=== PATIENT | male | born 1975 | race Hispanic/Latino ===

== ENCOUNTER 2024-07-05 11:28 | Inpatient (IN) | payer SELFPAY ==
[2024-07-05] VITALS (9 sets, daily range): BP systolic 91–118; BP diastolic 56–80; PULSE 89–159; RESP 13–24; TEMP 98.3–98.9; O2SAT 97
[~2024-07-05] VITALS: Ht 175.3 cm; Wt 76.7 kg
--- NOTE | 2024-07-05 11:36 | ERN ---
General Chief Complaint: Multiple Complaints Stated Complaint: MULTIPLE COMPLAINTS Time Seen by MD: 11:31 Source: patient History of Present Illness Initial Comments PATIENT IS A 48-YEAR-OLD MALE COMING IN COMPLAINING OF GENERALIZED BODY WEAKNESS WEIGHT LOSS AND NOCTURIA BEFORE SEVERAL WEEKS. HE STATES THAT HE WAS A DIABETIC BUT HAS NOT FOLLOWED UP WITH HIS PRIMARY CARE PHYSICIAN. Allergies: Coded Allergies: No Known Drug Allergies (Unverified Allergy, Unknown, 07/05/24) Past Medical History Past Medical History: No Pertinent History Past Surgical History: Other Surgical History Other: R LEG ROS Dictation CONSTITUTIONAL: NO CHILLS, NO FEVER, WEAKNESS, NO DIAPHORESIS, NO MALAISE. HEAD/FACE: NO SIGNS OF TRAUMA. EENT: NO EYE PAIN, NO BLURRED VISION, NO TEARING, NO DOUBLE VISION, NO EAR PAIN, NO EAR DISCHARGE, NO NOSE PAIN, NO NASAL CONGESTION, NO THROAT PAIN, NO THROAT SWELLING, NO MOUTH PAIN. RESPIRATORY: NO COUGH, NO ORTHOPNEA, NO SOB, NO STRIDOR, NO WHEEZING. CARDIOVASCULAR: NO CHEST PAIN, NO EDEMA, NO PALPITATIONS, NO SYNCOPE. GASTROINTESTINAL/ABDOMINAL: NO ABDOMINAL PAIN, NO CONSTIPATION, NO DIARRHEA, NO NAUSEA, NO VOMITING. GENITOURINARY: NO ABNORMAL DISCHARGE, NO DYSURIA, NO FREQUENT URINATION, NO HEMATURIA. NO COMPLAINTS OF PAIN IN THE GENITALS. MUSCULOSKELETAL: NO BACK PAIN, NO GOUT, NO JOINT PAIN, NO JOINT SWELLING, NO MUSCLE PAIN, NO MUSCLE STIFFNESS, NO NECK PAIN. INTEGUMENTARY: NO CHANGE IN COLOR, NO CHANGE IN HAIR/NAILS, NO DRYNESS, NO LESION, NO LUMPS, NO RASH. NEUROLOGICAL/PSYCH: NO ANXIETY, NOT DEPRESSED, NO EMOTIONAL PROBLEM, NO HEADACHE, NO NUMBNESS, NO PRE-EXISTING DEFICIT, NO HISTORY OF SEIZURES, NO TREMORS, NO WEAKNESS. HEMATOLOGIC/LYMPHATIC: NOT ANEMIC, NO HISTORY OF BLOOD CLOTS, NO APPARENT BLEEDING, NO BRUISING, GLANDS NOT SWOLLEN. ALL SYSTEMS NEGATIVE, EXCEPT NOTED. Physical Exam Physical Exam Dictation VITAL SIGNS: REVIEWED. GENERAL APPEARANCE: ALERT, ORIENTED X3, NO ACUTE DISTRESS, OBESE. HEAD AND FACE: NON-TRAUMATIC. EYES: PERRL, PINK CONJUNCTIVAS, EYELID NO TRAUMA, ANTERIOR CHAMBER CLEAR. EARS: PINNAS INTACT AND NO SIGNS OF TRAUMA OR ERYTHEMA. EAR CANALS CLEAR AND NO DISCHARGE. TMS NO ERYTHEMA. NOSE: NO DISCHARGE, NO BLEEDING. OROPHARYNX: MOUTH NORMAL, TEETH NO CARIES, TONGUE PINK. PHARYNX CLEAR, NO ERYTHEMA. TONSILS NO EXUDATES, NO ABSCESSES NOTED. MUCOUS MEMBRANE MOIST. NECK: SUPPLE, NON-TENDER, NO THYROMEGALY, NO MASSES, NO JVD, NO BRUITS. BREAST: DEFERRED. CHEST: NO TENDERNESS, NO CREPITUS, NO PARADOXICAL MOVEMENT, NO RETRACTIONS. LUNGS: CLEAR, WELL-VENTILATED, SYMMETRIC, NO RALES, NO WHEEZING, NO RHONCHI, NO STRIDOR, GOOD BREATH SOUNDS BILATERALLY. HEART: REGULAR RATE, REGULAR RHYTHM, NO MURMUR, NO GALLOPS. VASCULAR: NO PERIPHERAL EDEMA. ABDOMEN: SOFT, POSITIVE BOWEL SOUNDS, NONDISTENDED, NO GUARDING, NONTENDER, NO REBOUND, NO MASSES NO HEPATOMEGALY, NO SPLENOMEGALY, NO CHONG'S SIGN, NO HERNIAS. RECTAL: DEFERRED. GENITAL: DEFERRED. NEUROLOGICAL: NORMAL SPEECH, GROSS MOTOR FUNCTION INTACT, GROSS SENSORY FUNCTION INTACT. MUSCULOSKELETAL: NECK NONTENDER, FULL RANGE OF MOTION, BACK NONTENDER, FULL RANGE OF MOTION. EXTREMITIES: NONTENDER, FULL RANGE OF MOTION. SKIN: COLOR PINK, DRY, NO TURGOR, NO RASH, NO LACERATIONS, NO ABRASIONS, NO CONTUSIONS. LYMPHATICS: DEFERRED. Results Laboratory and Microbiology Lab and Micro Result Laboratory Tests Test 07/05/24 11:41 07/05/24 12:16 07/05/24 12:19 White Blood Count 12.9 K/uL (4.8-10.8) H Red Blood Count 5.85 MIL/uL (4.50-6.20) Hemoglobin 18.4 g/dL (14.0-18.0) H Hematocrit 52.2 % (42-54) Mean Corpuscular Volume 89.2 fL (79-99) Mean Corpuscular Hemoglobin 31.5 pg (27.0-33.0) Mean Corpuscular Hemoglobin Concent 35.2 g/dL (32.0-36.0) Red Cell Distribution Width 12.8 % (11.0-15.5) Platelet Count 307 K/uL (130-400) Mean Platelet Volume 12.1 fL (7.5-10.5) H Immature Granulocyte % (Auto) 0.5 % (0-1) Neutrophils (%) (Auto) 71.6 % (40.0-77.0) Lymphocytes (%) (Auto) 21.6 % (21.0-51.0) Monocytes (%) (Auto) 5.4 % (3.0-13.0) Eosinophils (%) (Auto) 0.4 % (0.0-8.0) Basophils (%) (Auto) 0.5 % (0.0-5.0) Neutrophils # (Auto) 9.2 K/uL (1.8-7.7) H Lymphocytes # (Auto) 2.8 K/uL (1.0-4.8) Monocytes # (Auto) 0.7 K/uL (0.1-1.0) Eosinophils # (Auto) 0.05 K/uL (0.00-0.70) Basophils # (Auto) 0.06 K/uL (0.00-0.20) Absolute Immature Granulocyte (auto 0.06 K/uL (0-1) Nucleated Red Blood Cells 0.0 % (0.0-0.19) Prothrombin Time 10.4 SEC (9.6-11.6) Prothromb Time International Ratio 0.98 (0.85-1.15) Activated Partial Thromboplast Time 31.4 SEC (26.3-35.5) Sodium Level 129 mmol/L (136-145) L Potassium Level 4.8 mmol/L (3.5-5.1) Chloride Level 92 mmol/L (101-111) L Carbon Dioxide Level 22 mmol/L (21-32) Blood Urea Nitrogen 21 mg/dL (7-18) H Creatinine 1.5 mg/dL (0.5-1.3) H Glomerular Filtration Rate Calc 57 mL/min (>90) Random Glucose 474 mg/dL (70-105) *H Whole Blood Ketones Quantitative 7.0 mmol/L (0.0-0.6) H Total Calcium 9.6 mg/dL (8.5-10.1) Magnesium Level 1.80 mg/dL (1.80-2.40) Total Creatine Kinase 62 U/L (21-232) Troponin I High Sensitivity 107 ng/L (4-75) *H B-Type Natriuretic Peptide 169 pg/mL (0-100) H Blood Gas Specimen Type Arterial Arterial Blood pH 7.318 (7.350-7.450) Arterial Blood Partial Pressure CO2 25 mmHg (35-48) L Arterial Blood Partial Pressure O2 98.0 mmHg (83.0-108.0) Arterial Blood HCO3 12.6 mmol/L (21.0-28.0) L Arterial Blood Oxygen Saturation 97.4 % (94.0-98.0) Arterial Blood Base Excess -11.3 mmol/L (-2.0-3.0) L Hemoglobin (Blood Gas) 16.9 g/dL (13.5-17.5) Sodium (Blood Gas) 131 MMOL/L (136-145) L Bedside Potassium (Blood Gas) 4.6 MMOL/L (3.4-4.5) H Bedside Chloride (Blood Gas) 100 MMOL/L (98-107) Bedside Glucose (Blood Gas) 413 MG/DL (65-95) *H Bedside Ionized Calcium (Blood Gas) 1.19 MMOL/L (1.15-1.33) Bedside Lactic Acid (Blood Gas) 1.29 MMOL/L (0.36-0.75) H Blood Gas Temperature 37.0 CELSIUS (35.5-37.0) Blood Gas Vent Mode RA (ROOM AIR) FiO2 21.0 % Blood Gas Specimen Comment RRBET Whole Blood Glucose 472 MG/DL (70-110) *H Labs Reviewed?: Yes EKG/XRAY/US/CT/MRI EKG Comment 07/05/2024 TIME 11:36 A.M. VENTRICULAR RATE [address] WAVE ELEVATION OR DEPRESSION TN 90 X-RAY Comment [address] [place] [address] IMAGING REPORT Signed PATIENT: MEMO PARRA MR#: [id number] : 1975 SEX: M AGE: 48 LOCATION: [facility] ORDER 1132 STATUS: REG REPORT#: [id number] SERVICE 1131 REASON: CP ORDERING PHYSICIAN: DANTE VEGAS MD PROCEDURE: CXR1VW - CHEST 1VW CHEST 1VW HISTORY: Chest pain COMPARISON: None FINDINGS: A frontal projection of the chest was obtained. No acute pulmonary infiltrates is seen. The heart is borderline enlarged. Prominent interstitial markings are seen. No evidence of aortic calcification is seen. IMPRESSION: 1. No acute pulmonary infiltrate is seen. DICTATED BY: JENNIFER SONG MD DATE: 07/05/24 122 ELECTRONICALLY SIGNED BY: JENNIFER SONG MD DATE: 07/05/245 [facility] MDM: DIFFERENTIAL DIAGNOSIS: DKA, ACS, NSTEMI, RATIONALE: TESTS CONSIDERED AND ORDERED SECONDARY TO SHARED DECISION MAKING INCLUDE: LABS, ECG AND RADIOLOGY PREVIOUS OUTSIDE RECORDS REVIEWED: OLD ER VISITS. RISK OF COMPLICATION AND/OR MORBIDITY OR MORTALITY OF PATIENT MANAGEMENT: NONE MEDICATIONS-PER MEDICATION RECONCILIATION NEED FOR HOSPITALIZATION: PATIENT DOES MEET CRITERIA FOR HOSPITALIZATION. NEED FOR EMERGENCY MAJOR/MINOR SURGERY: NO THERE ARE NO SOCIAL CONCERNS WITH THIS PATIENT. PRESCRIPTION DRUG MANAGEMENT PRESCRIPTIONS WILL INCLUDE SYMPTOMATIC CARE PATIENT'S PRIOR EXTERNAL MEDICAL RECORDS FROM OTHER ER VISITS WERE REVIEWED BY ME INDICATED. PRIOR TESTING AND RESULTS FROM PREVIOUS VISITS WERE REVIEWED. PRIOR TESTS WERE TAKEN INTO ACCOUNT WITH MEDICAL DECISION MAKING AND RESOURCE UTILIZATION, INDEPENDENT HISTORIAN/HISTORIANS WERE USED TO OBTAIN COMPLETE MEDICAL HISTORY. I INDEPENDENTLY INTERPRETED THE TEST THAT WERE PERFORMED, RESULTS WERE REVIEWED BY ME AND CONSIDERED FINDINGS ON RADIOLOGY IF ORDERED. MEDICAL MANAGEMENT AND EXAMINATION INTERPRETATION DISCUSSIONS WERE HAD BY ME WITH OTHER QUALIFIED HEALTHCARE PROFESSIONALS INDICATED FOR THE PATIENT'S CARE. PATIENT IS A 48-YEAR-OLD GENTLEMAN COMING IN TO BE EVALUATED FOR MULTIPLE COMPLAINTS. LABORATORY WORKUP DISCLOSED PATIENT IS IN DKA WITH A AN ELEVATED TROPONIN. PATIENT WILL BE ADMITTED UNDER THE CARE OF HOSPITALIST GROUP FOR ONGOING MANAGEMENT ED Course Orders Procedure Category Date Status Time Cbc With Differential LAB 07/05/24 Complete 11:31 Prothrombin Time With LAB 07/05/24 Complete INR 11:31 B-Type Natriuretic LAB 07/05/24 Complete Peptide 11:31 Chest 1vw RAD 07/05/24 Resulted 11:31 12 Lead Ekg Tracing- EKG 07/05/24 Logged Technical 11:31 Lactated Ringers PHA 07/05/24 Complete 1000ml (Lactated 12:00 Magnesium LAB 07/05/24 Complete 11:31 Creatine Kinase, Total LAB 07/05/24 Complete 11:31 Troponin I High LAB 07/05/24 Complete Sensitivity 11:31 Urinalysis Profile LAB 07/05/24 Logged 11:31 Partial LAB 07/05/24 Complete Thromboplastin Time 11:31 Basic Metabolic Panel LAB 07/05/24 Complete 11:31 Arterial Blood Gas + RT 07/05/24 Transmitted 11:31 Ketone Blood LAB 07/05/24 Complete Quantitative 11:31 0.9%Nacl 1000ml (Ns PHA 07/05/24 Complete 1000ml) 12:00 Drug Screen Urine LAB 07/05/24 Logged 11:31 12 Lead Ekg Tracing- EKG 07/05/24 Logged Technical 11:41 Insulin Regular, PHA 07/05/24 Complete Human 3ml (Humulin R 12:30 0.9%Nacl 1000ml (Ns PHA 07/05/24 Complete 1000ml) 12:30 Arterial Blood Gas LAB 07/05/24 Complete Arterial + 12:16 Troponin I High LAB 07/05/24 In Process Sensitivity 12:27 Insulin Regular, PHA 07/05/24 In Process Human 3ml (Humulin R 13:00 Current Medications Medications (Trade) Dose Ordered Sig/Oswaldo Route PRN Reason Start Time Stop Time Status Last Admin Dose Admin Insulin Human Regular (humuLIN R 100 UNIT/ML 3ML) 7 unit ONCE ONCE IV 07/05/24 12:30 07/05/24 12:31 DC 07/05/24 12:27 Insulin Human Regular 100 unit/ Sodium Chloride 100 ml @ 0 mls/hr PROTOCOL IV 07/05/24 13:00 08/04/24 12:59 Lactated Ringer's 1,000 ml @ 0 mls/hr ONCE ONCE IV 07/05/24 12:00 07/05/24 12:01 DC Sodium Chloride 1,000 ml @ 0 mls/hr ONCE ONCE IV 07/05/24 12:00 07/05/24 12:01 DC 07/05/24 11:43 Sodium Chloride 1,000 ml @ 0 mls/hr ONCE ONCE IV 07/05/24 12:30 07/05/24 12:31 DC Vital Signs Date Time Temp Pulse Resp B/P (MAP) Pulse Ox O2 Delivery O2 Flow Rate FiO2 07/05/24 11:57 147 18 122/93 99 Room Air* 0 21 07/05/24 11:29 97.5 155 14 122/93 100 Room Air 0 Critical Care Note Comments CRITICAL CARE PROCEDURE NOTE AUTHORIZED AND PERFORMED BY: ME TOTAL CRITICAL CARE TIME: APPROXIMATELY 36 MINUTES DUE TO A HIGH PROBABILITY OF CLINICALLY SIGNIFICANT, LIFE THREATENING DETERI ORATION, THE PATIENT REQUIRED MY HIGHEST LEVEL OF PREPAREDNESS TO INTERVENE EMERGENTLY AND I PERSONALLY SPENT THIS CRITICAL CARE TIME DIRECTLY AND PERSONALLY MANAGING THE PATIENT. THIS CRITICAL CARE TIME INCLUDED OBTAINING A HISTORY; EXAMINING THE PATIENT; PULSE OXIMETRY; ORDERING AND REVIEW OF STUDIES; ARRANGING URGENT TREATMENT WITH DEVELOPMENT OF A MANAGEMENT PLAN; EVALUATION OF PATIENT'S RESPONSE TO TREATMENT; FREQUENT REASSESSMENT; AND, DISCUSSIONS WITH OTHER PROVIDERS. THIS CRITICAL CARE TIME WAS PERFORMED TO ASSESS AND MANAGE THE HIGH PROBABILITY OF IMMINENT, LIFE-THREATENING DETERIORATION THAT COULD RESULT IN MULTI-ORGAN EDER LURE. IT WAS EXCLUSIVE OF SEPARATELY BILLABLE PROCEDURES AND TREATING OTHER PATIENTS AND TEACHING TIME. PLEASE SEE MDM SECTION AND THE REST OF THE NOTE FOR FURTHER INFORMATION ON PATIENT ASSESSMENT AND TREATMENT. DX & DISP Disposition: Inpatient Decision to Admit Time: 13:12 Departure Impression: Primary Impression: DKA (diabetic ketoacidosis) Additional Impression: ACS (acute coronary syndrome) Condition: Stable DANTE VEGAS MD July 05, 2024 11:36
[2024-07-05] MEDS: 0.9%NACL 1000ML 1,000 ML IV ONE ×2 (11:43→13:13)
[2024-07-05 11:50] LABS: BASOPHILS # (AUTO) 0.06 K/uL (0.00-0.20); BASOPHILS % (AUTO) 0.5 % (0.0-5.0); EOSINOPHILS # (AUTO) 0.05 K/uL (0.00-0.70); EOSINOPHILS % (AUTO) 0.4 % (0.0-8.0); HEMATOCRIT 52.2 % (42-54); IMMATURE GRANULOCYTE ABSOLUTE 0.06 K/uL (0-1); LYMPHOCYTES # (AUTO) 2.8 K/uL (1.0-4.8); LYMPHOCYTES % (AUTO) 21.6 % (21.0-51.0); MEAN CORPUSCULAR HEMOGLOBIN 31.5 pg (27.0-33.0); MEAN CORPUSCULAR HGB CONC 35.2 g/dL (32.0-36.0); MEAN CORPUSCULAR VOLUME 89.2 fL (79-99); MONOCYTES # (AUTO) 0.7 K/uL (0.1-1.0); MONOCYTES % (AUTO) 5.4 % (3.0-13.0); NEUTROPHILS # (AUTO) 9.2 K/uL (1.8-7.7); NEUTROPHILS % (AUTO) 71.6 % (40.0-77.0); PLATELET COUNT (AUTO) 307 K/uL (130-400); RED BLOOD CELL COUNT(AUTO) 5.85 MIL/uL (4.50-6.20); RED CELL DISTRIBUTION WIDTH 12.8 % (11.0-15.5); WHITE BLOOD COUNT (AUTO) 12.9 K/uL (4.8-10.8)
[2024-07-05] MEDS: LACTATED RINGERS 1000ML 1,000 ML IV ONE (11:53)
[2024-07-05 12:01] LABS: INR 0.98 (0.85-1.15); PROTHROMBIN TIME 10.4 SEC (9.6-11.6)
[2024-07-05 12:02] LABS: PARTIAL THROMBOPLASTIN TIME 31.4 SEC (26.3-35.5)
[2024-07-05 12:08] LABS: CREATININE 1.5 mg/dL (0.5-1.3); MAGNESIUM 1.8 mg/dL (1.80-2.40); POTASSIUM 4.8 mmol/L (3.5-5.1)
[2024-07-05 12:17] LABS: ABG BASE EXCESS -11.3 mmol/L (-2.0-3.0); ABG HCO3 12.6 mmol/L (21.0-28.0); ABG OXYGEN SATURATION 97.4 % (94.0-98.0); ABG PCO2 25 mmHg (35-48); ABG PH 7.318 (7.350-7.450); CARBON MONOXIDE 0.8 % (0.5-1.5); HHb 2.6; VENT MODE, BG RA (ROOM AIR)
[2024-07-05 12:20] LABS: B-TYPE NATRIURETIC PEPTIDE 169 pg/mL (0-100)
--- NOTE | 2024-07-05 12:25 | HMCIMG ---
CHEST 1VW HISTORY: Chest pain COMPARISON: None FINDINGS: A frontal projection of the chest was obtained. No acute pulmonary infiltrates is seen. The heart is borderline enlarged. Prominent interstitial markings are seen. No evidence of aortic calcification is seen. IMPRESSION: 1. No acute pulmonary infiltrate is seen.
[2024-07-05] MEDS: INSULIN humuLIN R 100 UNIT/ML 3ML IV ONE (12:27)
[2024-07-05] MEDS: INSULIN REGULAR, HUMAN 3ML 100 UNIT in 0.9%NACL 100ML 99 ML IV SCH (13:13)
--- NOTE | 2024-07-05 13:13 | NUR ---
DKA PROTOCOL COMMENCED
--- NOTE | 2024-07-05 13:16 | EKG ---
[facility] Test Date: 2024-07-05 Test Time: 11:36:28 Pat Name: MEMO PARRA Department: ED Room: 217 Gender: M [place] Weaver: [id number] : 1975 Requested By: DANTE VEGAS Order Number: [id number] Reading MD: Renato Escalante Measurements Intervals [place] Rate: 154 P: 105 UT: 90 QRS: 226 QRSD: 132 T: -51 QT: 346 QTc: 555 Interpretive Statements Sinus tachycardia Nonspecific intraventricular conduction delay Inferior infarct, age indeterminate Borderline ST elevation, anterior leads Compared to ECG 07/05/2024 11:25:24 ST (T wave) deviation now present T-wave abnormality no longer present Myocardial infarct finding still present Electronically Signed On 07-05-2024 15:52:47 CDT by Renaot Escalante Please click the below link to view image of tracing.
--- NOTE | 2024-07-05 13:16 | EKG ---
[facility] Test Date: 2024-07-05 Test Time: 11:25:24 Pat Name: MEMO PARRA Department: ED Room: 217 Gender: M A R Specialist: [id number] : 1975 Requested By: DANTE VEGAS Order Number: [id number] Reading MD: Renato Escalante Measurements Intervals [place] Rate: 156 P: 111 VT: 86 QRS: 235 QRSD: 131 T: -43 QT: 345 QTc: 557 Interpretive Statements Right and left arm electrode reversal, interpretation assumes no reversal Sinus tachycardia Nonspecific intraventricular conduction delay Inferior infarct, age indeterminate Nonspecific T abnormalities, lateral leads No previous ECG available for comparison Electronically Signed On 07-05-2024 15:52:43 CDT by Renato Escalante Please click the below link to view image of tracing.
[2024-07-05] MEDS ORDERED: GLUCAGON 1MG KIT 1 MG ML IM PRN (14:00)
[2024-07-05] MEDS ORDERED: morPHINE 2 MG SYG IVP PRN (14:00)
[2024-07-05] MEDS ORDERED: LACTULOSE 20 GM/30 ML UDCUP PO PRN ×2 (14:00→16:00)
[2024-07-05] MEDS ORDERED: ZOLPidem TARTrate 5 MG TAB PO PRN (14:00)
[2024-07-05] MEDS ORDERED: ondanSETRON 4MG INJ IV PRN ×2 (14:00→16:00)
[2024-07-05] MEDS ORDERED: NITROGLYCERIN 0.4 MG SL TAB SL PRN ×2 (14:00→16:00)
[2024-07-05] MEDS ORDERED: FAMOTIDINE 20MG VIAL IV PRN (14:00)
[2024-07-05] MEDS ORDERED: oxyCODONE/aceTAMIN 5/325MG TAB PO PRN (14:00)
[2024-07-05] MEDS ORDERED: DiphenhydrAMINE HCL 50 MG/ML VIAL IV PRN ×2 (14:00→16:00)
[2024-07-05] MEDS ORDERED: ketOROlac 15MG/ML VIAL (15MG/ML) IV PRN (14:00)
[2024-07-05] MEDS ORDERED: acetaMINOPHEN 325 MG TAB PO PRN ×5 (14:00→16:00)
[2024-07-05] MEDS ORDERED: DEXTROSE 50%-WATER 50 ML DISP.SYRIN IV PRN (14:00)
[2024-07-05] MEDS ORDERED: guaiFENesin-DM 200/20MG 10ML PO PRN ×2 (14:00→16:00)
--- NOTE | 2024-07-05 14:15 | NUR ---
PT DENIES COCAINE USE. HE SMOKED MARIJUANA YESTERDAY.
[2024-07-05] MEDS: MAG/ALUM/SIMETH 30 ML UDCUP PO PRN (14:17)
[2024-07-05] MEDS: 0.9%NACL 1000ML 1,000 ML IV SCH ×2 (14:17→16:45)
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
[2024-07-05] MEDS: LAbetaLOL 20MG SYG IV PRN (14:36)
[2024-07-05] MEDS: MAGNESIUM 2GM PREMIX 50ML 50 ML IV PRN (15:16)
[2024-07-05 15:36] LABS: APPEARANCE,URINE CLEAR (CLEAR); BILIRUBIN,URINE NEGATIVE (NEGATIVE); COLOR,URINE LIGHT-YELLOW (YELLOW); GLUCOSE, URINE (UA) >=1000 mg/dL (NEGATIVE); KETONES,URINE 150 mg/dL (NEGATIVE); LEUKOCYTE ESTERASE ,URINE NEGATIVE Leu/uL (NEGATIVE); MUCUS,URINE RARE LPF (None Seen); NITRATE,URINE NEGATIVE (NEGATIVE); OCCULT BLOOD,URINE NEGATIVE (NEGATIVE); PH,URINE 5.5 (5.0-8.0); PROTEIN,URINE 10 mg/dL (NEGATIVE); UROBILINOGEN,URINE 0.2 mg/dL (0.2-1.0); WBC,URINE 0-1 /HPF (0-1)
[2024-07-05 15:41] LABS: AMPHET/METH SCREEN,URINE NEGATIVE (NEGATIVE); BARBITURATE SCREEN, URINE NEGATIVE (NEGATIVE); BENZODIAZEPINES SCREEN,URINE NEGATIVE (NEGATIVE); CANNABINOID SCREEN,URINE POSITIVE (NEGATIVE); COCAINE SCREEN,URINE NEGATIVE (NEGATIVE); OPIATE SCREEN,URINE NEGATIVE (NEGATIVE); PHENCYCLIDINE SCREEN,URINE NEGATIVE (NEGATIVE)
[2024-07-05] MEDS ORDERED: 0.9%NACL 1000ML 1,000 ML IV SCH (16:00)
[2024-07-05] MEDS ORDERED: PoTASSium chloRIDE 20MEQ/10ML 20 MEQ in 0.9%NACL 1000ML 1,000 ML IV SCH (16:00)
[2024-07-05] MEDS ORDERED: MAG/ALUM/SIMETH 30 ML UDCUP PO PRN (16:00)
[2024-07-05] MEDS ORDERED: DiphenhydrAMINE HCL 25 MG CAPSULE PO PRN (16:00)
[2024-07-05] MEDS ORDERED: BENZOCAINE/MENTH/CETYLPYRD CL 1 EACH LOZENGE MM PRN (16:00)
[2024-07-05] MEDS ORDERED: MANNITOL 20% 250ML IV.SOLN IV SCH (16:00)
[2024-07-05] MEDS ORDERED: ARTIFICAL TEARS SOL 15 ML OP PRN (16:00)
[2024-07-05] MEDS ORDERED: MAGNESIUM 2GM PREMIX 50ML 50 ML IV SCH (16:00)
[2024-07-05] MEDS ORDERED: guaiFENesin SUGAR-FREE 100 MG/5 ML UDCUP PO PRN (16:00)
[2024-07-05] MEDS ORDERED: INSULIN REGULAR, HUMAN 3ML 100 UNIT in 0.9%NACL 100ML 100 ML IV SCH (16:00)
[2024-07-05] MEDS ORDERED: doCUSate SODIUM 100 MG CAP PO PRN (16:00)
[2024-07-05] MEDS ORDERED: LIDOCAINE HCL 2% VISCOUS 30 ML, MAG/ALUM/SIMETH 30ML 30 ML, DICYCLOMINE HCL 20 MG PO PRN (16:00)
[2024-07-05] MEDS ORDERED: polyETHYLene GLYCol 3350 17 GM POWD.PACK PO PRN (16:00)
[2024-07-05] MEDS ORDERED: DEXTROSE 5 %-0.45 % NACL 1,000 ML IV SCH (16:00)
[2024-07-05] MEDS ORDERED: INSULIN humuLIN R 100 UNIT/ML 3ML SQ SCH (16:30)
[2024-07-05 16:52] LABS: CREATININE 0.9 mg/dL (0.5-1.3); POTASSIUM 3.9 mmol/L (3.5-5.1)
[2024-07-05] MEDS: D5W-1/2 NS/20MEQ KCL 1,000 ML IV SCH (18:22)
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
[2024-07-05 20:30] LABS: CREATININE 0.9 mg/dL (0.5-1.3); POTASSIUM 3.9 mmol/L (3.5-5.1)
[2024-07-05] MEDS ORDERED: FAMOTIDINE 20MG TAB PO SCH (21:00)
[2024-07-05] MEDS: FAMOTIDINE 20MG VIAL IV SCH (21:00)
[2024-07-05] MEDS ORDERED: FAMOTIDINE 20MG VIAL IV SCH (21:00)
[2024-07-05] MEDS: HEParin 5,000 UNIT VIAL SQ SCH (21:01)
[2024-07-05] MEDS: INSULIN GLARgine 100 UNITS/ML 10 ML VIAL SQ SCH (21:02)
[2024-07-05 22:59] LABS: CREATININE 0.9 mg/dL (0.5-1.3); POTASSIUM 3.6 mmol/L (3.5-5.1)
[2024-07-06] VITALS (18 sets, daily range): BP systolic 107–147; BP diastolic 56–94; PULSE 75–94; RESP 13–26; TEMP 97.5–98.7; O2SAT 97–98
[2024-07-06 04:56] LABS: BASOPHILS # (AUTO) 0.05 K/uL (0.00-0.20); BASOPHILS % (AUTO) 0.5 % (0.0-5.0); EOSINOPHILS # (AUTO) 0.16 K/uL (0.00-0.70); EOSINOPHILS % (AUTO) 1.6 % (0.0-8.0); HEMATOCRIT 42.2 % (42-54); IMMATURE GRANULOCYTE ABSOLUTE 0.06 K/uL (0-1); LYMPHOCYTES # (AUTO) 2.9 K/uL (1.0-4.8); LYMPHOCYTES % (AUTO) 29.1 % (21.0-51.0); MEAN CORPUSCULAR HEMOGLOBIN 31.1 pg (27.0-33.0); MEAN CORPUSCULAR HGB CONC 34.4 g/dL (32.0-36.0); MEAN CORPUSCULAR VOLUME 90.6 fL (79-99); MONOCYTES # (AUTO) 0.6 K/uL (0.1-1.0); NEUTROPHILS # (AUTO) 6.3 K/uL (1.8-7.7); NEUTROPHILS % (AUTO) 62.2 % (40.0-77.0); PLATELET COUNT (AUTO) 254 K/uL (130-400); RED BLOOD CELL COUNT(AUTO) 4.66 MIL/uL (4.50-6.20); WHITE BLOOD COUNT (AUTO) 10.1 K/uL (4.8-10.8)
[2024-07-06 05:31] LABS: ALBUMIN 3.2 g/dL (3.5-5.0); BILIRUBIN,DIRECT 0.2 mg/dL (0.0-0.3); BILIRUBIN,TOTAL 0.7 mg/dL (0.2-1.0); CREATININE 0.9 mg/dL (0.5-1.3); POTASSIUM 3.9 mmol/L (3.5-5.1); TOTAL PROTEIN, SERUM 6.8 g/dL (6.0-8.3)
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
[2024-07-06] MEDS: INSULIN humuLIN R 100 UNIT/ML 3ML SQ SCH ×2 (07:30→16:29)
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
--- NOTE | 2024-07-06 12:24 | HMCSR ---
APPROVED REPORT EXAM: Two-dimensional and M-mode echocardiogram with Doppler and color Doppler. INDICATION ICD: CHF Chest Pain 2D Dimensions IVSd1.1 (0.7-1.1cm)LVEF(%)65.3 (>50%)LVED Vol(simp.)81.0 mL LVDd3.7 (3.8-5.6cm)FS(%)35 %LVES Vol(simp.)36.0 mL PWd1.1 (0.7-1.1cm)LA (2D)3.5 (1.6-4.0cm)LVEF(%, simp.)56 % LVDs2.4 (2.5-4.0cm)Ao Root(2D)3.4 (2.0-3.7cm)LA ESV INDEX (BP)26.03 mL/m2 LVOT diam2.4 (1.8-2.4cm) IVC diam1.8 cm Deformation Strain Apical 4-17.2 % Apical 2-17.5 % Apical 3-16.0 % Global Strain-16.9 % M-Mode Dimensions EPSS0.2 cm LA (MM)3.5 (1.6-4.0cm) Ao Root(MM)3.3 (2.0-3.7cm) Aortic Valve AoV Vmax1.3 m/Christopher Peak GR6.5 mmHgLVOT Vmax0.9 m/s AoV VTI0.2 mAo Mean GR3.9 mmHgLVOT VTI0.19 m STEPHANIE (VMAX)3.72 cm2AVA (VTI) 3.7 cm2 Mitral Valve MV E Vmax66.9 cm/sDECEL Zfgi281 ms MV A Vmax73.0 cm/sP 1/2 T45 ms E/A ratio0.9MVA (PHT)4.9 cm2 TDI E/E' Medial9.9E/E' Lateral6.4 Medial E' Peak V6.75 cm/sLateral E' Peak V10.50 cm/s Pulmonary Valve PV Vmax1.3 m/sPV VTI0.26 mPV Mean GR3.3 mmHg PV Peak GR6.5 mmHg Left Ventricle The left ventricle is normal size. There is normal LV segmental wall motion. Global strain at -16.9% There is normal left ventricular wall thickness. LVEF is 60-65%. Stage I diastolic dysfunction. Right Ventricle The right ventricle is normal size. The right ventricular systolic function is normal. Atria The left atrium size is normal. The right atrium size is normal. Aortic Valve The aortic valve is normal in structure. No aortic regurgitation is present. There is no aortic valvu lar stenosis. Mitral Valve The mitral valve is normal in structure. There is no mitral valve regurgitation noted. There is no mi tral valve stenosis. Tricuspid Valve The tricuspid valve is normal in structure. There is no tricuspid valve regurgitation noted. Pulmonic Valve The pulmonary valve is normal in structure. There is no pulmonic valvular regurgitation. Great Vessels The aortic root is normal in size. The IVC is normal in size and collapses >50% with inspiration. Pericardium There is no pericardial effusion. Conclusion LVEF is 60-65%. Stage I diastolic dysfunction. There is normal LV segmental wall motion. Global strain at -16.9% The aortic root is normal in size. There is no pericardial effusion.
--- NOTE | 2024-07-06 14:38 | EKG ---
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
--- NOTE | 2024-07-06 17:21 | NUR ---
Report given to Mary CORONADO via telephone.
--- NOTE | 2024-07-06 17:30 | NUR ---
RECEIVED PATIENT , AWAKE ALERT ORIENTED X 4 , DENIES ANY PAIN OR DISCOMFORT . CALL LIGHT WITHIN REACH
--- NOTE | 2024-07-06 18:59 | NUR ---
DCP: INITIAL ASSESSMENT Patient lives alone. He has no home services or DME. Patient is able to complete ADLs independently and drives. 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 Patient has no PCP. Pharmacy is [facility] located in [place]. Patient voiced no safety concerns regarding returning home and states he has no difficulty with housing or buying food. DCP is home. Patient has no insurance or benefits. He was provided with community resources for post hospitalization follow up. Patient was also provided with Good RX card for prescriptions and educated on [facility] $4 medication program and [facility] $5 medication program. Patient is being assisted by [facility] for financial matters. Addendum: 07/06/24 at 1901 by GILBERTO ROBERTSON Amended: Links added.
[2024-07-06] MEDS: INSULIN GLARgine 100 UNITS/ML 10 ML VIAL SQ SCH (21:19)
[2024-07-07] VITALS: BP 131/89; PULSE 89; RESP 20; TEMP 98
[2024-07-07 04:00] VITALS: BP 147/93; PULSE 87; RESP 20; TEMP 98.3
[2024-07-07 06:27] LABS: BASOPHILS # (AUTO) 0.05 K/uL (0.00-0.20); BASOPHILS % (AUTO) 0.7 % (0.0-5.0); EOSINOPHILS # (AUTO) 0.17 K/uL (0.00-0.70); EOSINOPHILS % (AUTO) 2.5 % (0.0-8.0); HEMATOCRIT 42.5 % (42-54); IMMATURE GRANULOCYTE ABSOLUTE 0.04 K/uL (0-1); LYMPHOCYTES # (AUTO) 2.4 K/uL (1.0-4.8); LYMPHOCYTES % (AUTO) 35.7 % (21.0-51.0); MEAN CORPUSCULAR HEMOGLOBIN 31.7 pg (27.0-33.0); MEAN CORPUSCULAR HGB CONC 34.8 g/dL (32.0-36.0); MONOCYTES # (AUTO) 0.5 K/uL (0.1-1.0); MONOCYTES % (AUTO) 6.7 % (3.0-13.0); NEUTROPHILS # (AUTO) 3.6 K/uL (1.8-7.7); NEUTROPHILS % (AUTO) 53.8 % (40.0-77.0); PLATELET COUNT (AUTO) 238 K/uL (130-400); RED BLOOD CELL COUNT(AUTO) 4.67 MIL/uL (4.50-6.20); RED CELL DISTRIBUTION WIDTH 12.9 % (11.0-15.5); WHITE BLOOD COUNT (AUTO) 6.7 K/uL (4.8-10.8)
[2024-07-07] MEDS: INSULIN humuLIN R 100 UNIT/ML 3ML SQ SCH ×2 (06:30→16:30)
[2024-07-07 06:43] LABS: ALBUMIN 3.1 g/dL (3.5-5.0); BILIRUBIN,TOTAL 0.4 mg/dL (0.2-1.0); CREATININE 0.8 mg/dL (0.5-1.3); MAGNESIUM 1.7 mg/dL (1.80-2.40); POTASSIUM 3.4 mmol/L (3.5-5.1); TOTAL PROTEIN, SERUM 6.8 g/dL (6.0-8.3)
[2024-07-07 08:00] VITALS: BP 144/95; PULSE 87; RESP 18; TEMP 98.3; O2SAT 98
[2024-07-07] MEDS: INSULIN GLARgine 100 UNITS/ML 10 ML VIAL SQ SCH (08:25)
[2024-07-07 12:00] VITALS: BP 152/99; PULSE 90; RESP 20; TEMP 98.2
[2024-07-07] MEDS: MAGNESIUM OXIDE 400 MG TABLET PO ONE (12:25)
[2024-07-07] MEDS: PoTASSium chloRIDE 20MEQ ER 20 MEQ ERTAB PO ONE ×2 (12:25→13:54)
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
[2024-07-07] MEDS ORDERED: DEXTROSE 50%-WATER 50 ML DISP.SYRIN IV PRN (14:00)
[2024-07-07] MEDS ORDERED: PoTASSium chl 10% ELIXIR 20MEQ 20 MEQ/15 ML UDCUP PO PRN (14:00)
[2024-07-07] MEDS ORDERED: PoTASSium chloRIDE 10MEQ/100ML 100 ML IV PRN (14:00)
[2024-07-07] MEDS ORDERED: MAGNESIUM 2GM PREMIX 50ML 50 ML IV PRN (14:00)
[2024-07-07] MEDS ORDERED: PoTASSium chloRIDE 10MEQ SR 10 MEQ/TAB TAB.SR.24H PO PRN (14:00)
[2024-07-07] MEDS ORDERED: MAGNESIUM 2GM PREMIX 50ML 50 ML IV SCH (14:00)
[2024-07-07] MEDS ORDERED: GLUCAGON 1MG KIT 1 MG ML IM PRN (14:00)
[2024-07-07 16:00] VITALS: BP 137/90; PULSE 81; RESP 20; TEMP 98.4
[2024-07-07 20:20] VITALS: BP 150/95; PULSE 92; RESP 18; TEMP 98.2
[2024-07-08] VITALS (8 sets, daily range): BP systolic 127–147; BP diastolic 78–99; PULSE 80–88; RESP 18; TEMP 98.2–98.5; O2SAT 99
[2024-07-08 05:58] LABS: BASOPHILS # (AUTO) 0.04 K/uL (0.00-0.20); BASOPHILS % (AUTO) 0.5 % (0.0-5.0); EOSINOPHILS # (AUTO) 0.16 K/uL (0.00-0.70); EOSINOPHILS % (AUTO) 2.1 % (0.0-8.0); HEMATOCRIT 41.8 % (42-54); IMMATURE GRANULOCYTE ABSOLUTE 0.02 K/uL (0-1); LYMPHOCYTES # (AUTO) 2.8 K/uL (1.0-4.8); LYMPHOCYTES % (AUTO) 36.9 % (21.0-51.0); MEAN CORPUSCULAR HEMOGLOBIN 32.2 pg (27.0-33.0); MEAN CORPUSCULAR HGB CONC 35.6 g/dL (32.0-36.0); MEAN CORPUSCULAR VOLUME 90.3 fL (79-99); MONOCYTES # (AUTO) 0.5 K/uL (0.1-1.0); MONOCYTES % (AUTO) 6.9 % (3.0-13.0); NEUTROPHILS # (AUTO) 4.1 K/uL (1.8-7.7); NEUTROPHILS % (AUTO) 53.3 % (40.0-77.0); PLATELET COUNT (AUTO) 246 K/uL (130-400); RED BLOOD CELL COUNT(AUTO) 4.63 MIL/uL (4.50-6.20); RED CELL DISTRIBUTION WIDTH 12.8 % (11.0-15.5); WHITE BLOOD COUNT (AUTO) 7.6 K/uL (4.8-10.8)
[2024-07-08 06:12] LABS: ALBUMIN 3.1 g/dL (3.5-5.0); BILIRUBIN,TOTAL 0.5 mg/dL (0.2-1.0); CREATININE 0.9 mg/dL (0.5-1.3); MAGNESIUM 2.6 mg/dL (1.80-2.40); POTASSIUM 3.9 mmol/L (3.5-5.1); TOTAL PROTEIN, SERUM 6.8 g/dL (6.0-8.3)
[2024-07-08 06:55] LABS: INR <= 0.93 (0.85-1.15); PROTHROMBIN TIME 9.8 SEC (9.6-11.6)
[2024-07-08 07:20] LABS: PARTIAL THROMBOPLASTIN TIME 26.9 SEC (26.3-35.5)
[2024-07-08] MEDS: INSULIN GLARgine 100 UNITS/ML 10 ML VIAL SQ SCH (09:03)
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
[2024-07-08] MEDS ORDERED: PoTASSium chloRIDE 20MEQ ER 20 MEQ ERTAB PO PRN (15:00)
[2024-07-08] MEDS ORDERED: PoTASSium chloRIDE 10MEQ/100ML 100 ML IV PRN (15:00)
[2024-07-08] MEDS ORDERED: MAGNESIUM 2GM PREMIX 50ML 50 ML IV PRN (15:00)
[2024-07-08] MEDS ORDERED: DEXTROSE 50%-WATER 50 ML DISP.SYRIN IV PRN (15:00)
[2024-07-08] MEDS ORDERED: GLUCAGON 1MG KIT 1 MG ML IM PRN (15:00)
[2024-07-08] MEDS ORDERED: PoTASSium chl 10% ELIXIR 20MEQ 20 MEQ/15 ML UDCUP PO PRN (15:00)
--- NOTE | 2024-07-08 15:18 | NUR ---
Nutrition consult per nutrition educations Reviewed labs, notes, and medications. Pt with marijuana use, GBW POA, pending cath ablation, on HH, insulin, BG 247(H), Ca 7.7(L), Mg 2.60(H), elevated AST 39 per chart review. 100%PO intake, wt via standing scale, last BM 07/08/24, no edema, well nourished, no wounds, 600 ml 07/08/24 per nursing. No A1C, vit. D, lipid labs. Per research low vitamin D may contribute to insulin resistance. Recommendations: -Provide HH + 75 gm cho -Monitor PO intake -Encourage PO intake as able -Monitor BM -If no BM >3 days consider stool softener -Monitor electrolytes -Replenish electrolytes per protocol -Monitor wts -Reweigh as able -Order Vit D, vit b-12 labs to rule out deficiencies -Order lipid panel, A1C -Recommend Pt to follow up with PCP -Monitor goals of care RD to follow + available for consult per protocol Addendum: 07/08/24 at [address] Amended: Links added.
[2024-07-08 16:17] LABS: CHOLESTEROL 274 mg/dL (<200); HDL CHOLESTEROL 25 mg/dL (29-71); LDL DIRECT 104 mg/dL (0-99); TRIGLYCERIDES 1797 mg/dL (30-200)
[2024-07-08] MEDS: INSULIN humuLIN R 100 UNIT/ML 3ML SQ SCH (17:08)
[2024-07-09] VITALS (13 sets, daily range): BP systolic 121–149; BP diastolic 80–108; PULSE 74–94; RESP 17–18; TEMP 97.6–97.8; O2SAT 98
[2024-07-09 06:47] LABS: BASOPHILS # (AUTO) 0.04 K/uL (0.00-0.20); BASOPHILS % (AUTO) 0.6 % (0.0-5.0); EOSINOPHILS # (AUTO) 0.18 K/uL (0.00-0.70); EOSINOPHILS % (AUTO) 2.5 % (0.0-8.0); HEMATOCRIT 42.1 % (42-54); IMMATURE GRANULOCYTE ABSOLUTE 0.04 K/uL (0-1); LYMPHOCYTES # (AUTO) 2.4 K/uL (1.0-4.8); LYMPHOCYTES % (AUTO) 32.9 % (21.0-51.0); MEAN CORPUSCULAR HEMOGLOBIN 31.1 pg (27.0-33.0); MEAN CORPUSCULAR HGB CONC 34.4 g/dL (32.0-36.0); MEAN CORPUSCULAR VOLUME 90.3 fL (79-99); MONOCYTES # (AUTO) 0.5 K/uL (0.1-1.0); MONOCYTES % (AUTO) 7.4 % (3.0-13.0); NEUTROPHILS # (AUTO) 4.1 K/uL (1.8-7.7); PLATELET COUNT (AUTO) 233 K/uL (130-400); RED BLOOD CELL COUNT(AUTO) 4.66 MIL/uL (4.50-6.20); RED CELL DISTRIBUTION WIDTH 12.7 % (11.0-15.5); WHITE BLOOD COUNT (AUTO) 7.3 K/uL (4.8-10.8)
[2024-07-09 06:58] LABS: INR 0.97 (0.85-1.15); PROTHROMBIN TIME 10.3 SEC (9.6-11.6)
[2024-07-09 07:00] LABS: ALBUMIN 3.2 g/dL (3.5-5.0); BILIRUBIN,TOTAL 0.4 mg/dL (0.2-1.0); CREATININE 0.8 mg/dL (0.5-1.3); MAGNESIUM 1.7 mg/dL (1.80-2.40); POTASSIUM 3.6 mmol/L (3.5-5.1); TOTAL PROTEIN, SERUM 7.1 g/dL (6.0-8.3)
[2024-07-09] MEDS: INSULIN humuLIN R 100 UNIT/ML 3ML SQ SCH (07:04)
[2024-07-09] MEDS ORDERED: PoTASSium chloRIDE 10MEQ SR 10 MEQ/TAB TAB.SR.24H PO PRN (08:30)
--- NOTE | 2024-07-09 09:52 | EKG ---
[facility] Test Date: 2024-07-09 Test Time: 04:05:10 Pat Name: MEMO PARRA Department: [facility] Room: 323 1 Gender: M Taker Down: [id number] : 1975 Requested By: KARTHIK ANGLIN Order Number: [id number] Reading MD: Terri Ybarra Measurements Intervals [place] Rate: 73 P: 31 TX: 168 QRS: 7 QRSD: 106 T: 43 QT: 406 QTc: 447 Interpretive Statements Normal sinus rhythm Inferior infarct , age undetermined Compared to ECG 07/06/2024 10:41:37 Myocardial infarct finding now present Electronically Signed On 07-10-2024 09:18:57 CDT by Terri Ybarra Please click the below link to view image of tracing.
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
[2024-07-09] MEDS ORDERED: SODIUM BICARB 50MEQ 50ML VIAL 50 ML ONE (13:11)
[2024-07-09] MEDS ORDERED: HEParin-NS 1,000 UNIT/500 ML 500 ML IV ONE (13:11)
[2024-07-09] MEDS ORDERED: LIDOCAINE HCL 400MG/20ML VIAL ONE ×2 (13:11→13:29)
[2024-07-09] MEDS ORDERED: HEParin 10,000 UNIT/10ML (1,000 UNIT/ML) VIAL ONE (13:11)
[2024-07-09] MEDS ORDERED: FENTanyl CITRate PF 50 MCG/1 ML 2ML VIAL ONE (13:29)
[2024-07-09] MEDS ORDERED: MIDAZOLAM HCL 1 MG/ML 2ML VIAL ONE ×2 (13:30→13:41)
[2024-07-09] MEDS: hydrALAZine 20MG/ML VIAL IV PRN (15:39)
[2024-07-09] MEDS: PoTASSium chloRIDE 20MEQ ER 20 MEQ ERTAB PO ONE (17:18)
--- NOTE | 2024-07-09 19:32 | NUR ---
status update pt refusing vital signs , telemetry,blood sugar monitoring, stating "i want to rest,im tired"this despite explanation of benefits to continue close monitoring , and risks associated with refusal for continued evaluation. pt signed waiver for refusal with full understanding. charge nurse informed.
[2024-07-09] MEDS: APIXaban 5 MG TABLET PO SCH (21:04)
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
[2024-07-10] MEDS: INSULIN humuLIN R 100 UNIT/ML 3ML SQ SCH (07:20)
[2024-07-10 08:00] VITALS: BP 134/96; PULSE 84; RESP 18; TEMP 98.2; O2SAT 97
[2024-07-10] MEDS ORDERED: INSU100V3 SQ (08:35)
[2024-07-10] MEDS ORDERED: METF-444 PO (08:35)
[2024-07-10] MEDS ORDERED: INSLAN SQ (08:35)
[2024-07-10] MEDS ORDERED: GLIM1TAB56 PO (08:35)
[2024-07-10] MEDS ORDERED: APIX5TAB PO (08:35)
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
--- NOTE | 2024-07-10 10:10 | NUR ---
PATIENT DISCHARGED HOME ID BAND AND IV REMOVED. DISCHARGE INSTRUCTIONS EXPLAINED AND GIVEN TO PATIENT. PATIENT VERBALIZED UNDERSTANDING. BELONGINGS PACKED AND TAKEN BY PATIENT. WHEELED DOWN TO PRIVATE CAR.
--- NOTE | 2024-07-10 11:40 | NUR ---
Pt d/c before RD could reassess. NO A1C in chart or vit. D. Addendum: 07/10/24 at [address] Amended: Links added.
--- NOTE | 2024-07-12 17:28 | NUR ---
Transitional Phone Call Attempted to call twice, left message [phone] and no return call.
== END 2024-07-10 10:10 | disposition home or self-care (01) | DRG 273 ==
LOC: EDH 11:28 → EDHIP 11:29 → 2CH 15:41 → 3DH 07-06 17:45
PROVIDERS: ADMIT Internal Medicine; ATTEND Internal Medicine
PROC: 02583ZZ Destruction of Conduction Mechanism, Percutaneous Approach (ICD-10-PCS; principal; 2024-07-09)
PROC: 02K83ZZ Map Conduction Mechanism, Percutaneous Approach (ICD-10-PCS; 2024-07-09)
PROC: 4A0234Z Measurement of Cardiac Electrical Activity, Percutaneous Approach (ICD-10-PCS; 2024-07-09)
DX: I48.3 Typical atrial flutter (principal); E11.10 Type 2 diabetes mellitus with ketoacidosis without coma; I21.A1 Myocardial infarction type 2; I50.31 Acute diastolic (congestive) heart failure; E87.1 Hypo-osmolality and hyponatremia; N17.9 Acute kidney failure, unspecified; I47.20 Ventricular tachycardia, unspecified; E86.0 Dehydration; Z79.4 Long term (current) use of insulin; K21.9 Gastro-esophageal reflux disease without esophagitis; D72.829 Elevated white blood cell count, unspecified
CPT/HCPCS: 36415; 36600; 71045; 80048; 80053; 80061; 80076; 80305; 81001; 82010; 82306; 82435; 82550; 82607; 82803; 82947; 82948; 83036; 83605; 83690; 83735; 83880; 84132; 84145; 84295; 84443; 84484; 85018; 85025; 85610; 85730; 87086; 93005; 93306; 93356; 93653; 96361; 96374; 99156; 99157; 99291; C1732; C1894; G0378; J0360; J1644; J1815; J2250; J3010; J3475; J3480; J3490; J7030; A4649; C1760

== ENCOUNTER 2024-12-23 14:27 | Emergency (ER) | payer BC ==
[~2024-12-23] VITALS: Ht 175.3 cm; Wt 77.1 kg
[~2024-12-23 14:27] MED LIST: APIX5TAB PO; GLIM1TAB56 PO; INSLAN SQ; INSU100V3 SQ; METF-444 PO
--- NOTE | 2024-12-23 15:32 | ERN ---
ED Note History of Present Illness Stated Complaint: LT UPPER BACK, RT LEG PAIN Chief Complaint: Back Pain-No Injury Time Seen by MD: 14:32 Dictation: PATIENT IS A 49-YEAR-OLD [employer]ING [employer] COMING IN TODAY WITH COMPLAINTS OF LEFT UPPER THORACIC PAIN WORSE WHEN HE MOVES FOR THE LAST TWO MONTHS. NO FEVER NO CHILLS NO TRAUMA. HE DENIES ANY PRIOR INJURIES. EXAMINATION OF HIS BACK DOES NOT SHOW ANY VESICULAR LESIONS. ADDITIONALLY HE IS COMPLAINING OF A BURNING SENSATION TO THE RIGHT MEDIAL THIGH HE HAS HAD FOR THE SAME AMOUNT OF TIME. SKIN IS INTACT THERE WAS NO ERYTHEMA NO SWELLING NO VESICULAR LESIONS. RANGE OF MOTION AND HE STATES HE HAS NOT BEEN TO THE DOCTOR UNTIL TODAY BECAUSE HE HAS NOT HAD TIME TO STOP. Allergies: Coded Allergies: No Known Drug Allergies (Unverified Allergy, Unknown, 07/05/24) Home Meds Active Scripts Cyclobenzaprine HCl (Cyclobenzaprine HCl) 10 Mg Tablet, 1 TAB PO TID for muscle spasms for 10 Days, #30 TAB 0 Refills Prov:TOM FERRIS JACQUARD [employer]OM WEAVER 12/23/24 Ibuprofen (Ibuprofen 800 mg Tab) 800 Mg Tab, 800 MG PO Q8H PRN for fever or pain, #30 TAB 0 Refills Prov:TOM FERRIS JACQUARD [employer] WEAVER 12/23/24 Glimepiride (Glimepiride) 1 Mg Tablet, 1 TAB PO DAILY for 30 Days, #30 TAB 0 Refills Prov:JUMA CHRIS JACQUARD [employer] WEAVER 07/10/24 Metformin HCl (Metformin HCl) 500 Mg Tablet, 1000 MG PO BID, #60 TAB Prov:JUMA CHRIS JACQUARD [employer] WEAVER 07/10/24 Insulin Regular, Human (Humulin R) 100 Unit/Ml Vial, 12 UNIT SQ TIDAC, #10 VIAL Prov:JUMA CHRIS JACQUARD [employer] WEAVER 07/10/24 Insulin Glargine,Hum.rec.anlog (Lantus) 100 Unit/Ml Inj, 30 UNITS SQ DAILY08, #10 ML Prov:JUMA CHRIS JACQUARD [employer] WEAVER 07/10/24 Apixaban (Eliquis) 5 Mg Tablet, 5 MG PO BID, #60 TAB Prov:JUMA CHRIS JACQUARD [employer]OM WEAVER 07/10/24 Past Medical History Past Medical History: Diabetes-Type II, Heart Disease Surgical History: Other Surgical History Other: RT HEART CATH, RT LEG RN Note Reviewed/Agreed w/PFSH: Yes Review of System Dictation CONSTITUTIONAL: NEGATIVE EXCEPT FOR HPI HEAD/FACE: NEGATIVE EXCEPT FOR HPI EENT: NEGATIVE EXCEPT FOR HPI RESPIRATORY: NEGATIVE EXCEPT FOR HPI GASTROINTESTINAL/ABDOMINAL: NEGATIVE EXCEPT FOR HPI GENITOURINARY: NEGATIVE EXCEPT FOR HPI MUSCULOSKELETAL: NEGATIVE EXCEPT FOR HPI LEFT UPPER THORACIC PAIN TENDERNESS TWO MONTHS INTEGUMENTARY: NEGATIVE EXCEPT FOR HPI NEUROLOGICAL/PSYCH: NEGATIVE EXCEPT FOR HPI BURNING SENSATION TO RIGHT MEDIAL THIGH TWO MONTHS HEMATOLOGIC/LYMPHATIC: NEGATIVE EXCEPT FOR HPI ALL SYSTEMS NEGATIVE, EXCEPT NOTED ABOVE. 13 POINT REVIEW OF SYSTEMS ASSESSED AND ALL NEGATIVE EXCEPT FOR ABOVE. Initial Vital Sign VS Vital Signs Date Time Temp Pulse Resp B/P (MAP) Pulse Ox O2 Delivery O2 Flow Rate FiO2 12/23/24 14:28 98.4 92 16 150/103 98 Room Air 0 12/23/24 16:33 21 Physical Exam Dictation VITAL SIGNS REVIEWED GENERAL APPEARANCE: ALERT, ORIENTED X 3, MILD ACUTE DISTRESS, WELL DEVELOPED, NOURISHED. HEAD AND FACE: NON-TRAUMATIC. EYES: PERRL, PINK CONJUNCTIVAS, EYELID NO TRAUMA, ANTERIOR CHAMBER WITH ARCUS SENILIS. EARS: PINNAS INTACT AND NO SIGNS OF TRAUMA OR ERYTHEMA EAR CANALS CLEAR AND NO DISCHARGE TM NO ERYTHEMA NOSE: NO DISCHARGE, NO BLEEDING. OROPHARYNX: MOUTH NORMAL, TONGUE PINK, PHARYNX CLEAR,NO ERYTHEMA, TONSILS NO EXUDATES, NO ABSCESSES NOTED, MUCOUS MEMBRANE MOIST NECK: SUPPLE, NON-TENDER, NO THYROMEGALY, NO MASSES, NO JVD, NO BRUITS BREAST:DEFERRED CHEST:NO TENDERNESS, NO CREPITUS, NO PARADOXICAL MOVEMENT, NO RETRACTIONS LUNGS:CLEAR, WELL-VENTILATED, SYMMETRIC, NO RALES, NO WHEEZING, NO RHONCHI, NO STRIDOR, GOOD BREATH SOUNDS BILATERALLY HEART: REGULAR RATE, REGULAR RHYTHM, NO MURMUR, NO GALLOPS VASCULAR: NO PERIPHERAL EDEMA, ABDOMEN: SOFT, POSITIVE BOWEL SOUNDS, NONDISTENDED, NO GUARDING, NONTENDER, NO REBOUND, NO MASSES NO HEPATOMEGALY, NO SPLENOMEGALY, NO CHONG'S SIGN, NO HERNIAS. RECTAL: DEFERRED GENITAL: DEFERRED NEUROLOGICAL: NORMAL SPEECH, MOTOR FUNCTION INTACT, SENSORY FUNCTION INTACT MUSCULOSKELETAL: NECK NONTENDER, FULL RANGE OF MOTION, MILD TENDERNESS TO LEFT LATERAL UPPER THORACIC BACK. NO VESICULA LESIONS ERYTHEMA OR SWELLING. NO LESIONS OTHER EXTREMITIES: NONTENDER, FULL RANGE OF MOTION SKIN: COLOR PINK, DRY, NO TURGOR, NO RASH, NO LACERATIONS, NO ABRASIONS, NO CONTUSIONS. LYMPHATIC: DEFERRED Results (Laboratory/Radiology) Laboratory/Radiology 1555/THORACIC X-RAY NEGATIVE EXCEPT FOR DEGENERATIVE CHANGES Labs Reviewed?: Yes ED Course ED Course Orders Procedure Category Date Status Time Thoracic Spine 2vws RAD 12/23/24 Resulted 15:29 Ketorolac 60mg/2ml PHA 12/23/24 Complete (Toradol 60mg/2ml) 15:30 Current Medications Medications (Trade) Dose Ordered Sig/Oswaldo Route PRN Reason Start Time Stop Time Status Last Admin Dose Admin Ketorolac Tromethamine (toRADol 60MG/ 2ML) 60 mg ONCE ONCE IM 12/23/24 15:30 12/23/24 15:32 DC 12/23/24 16:27 Vital Signs Date Time Temp Pulse Resp B/P (MAP) Pulse Ox O2 Delivery O2 Flow Rate FiO2 12/23/24 16:33 98.6 82 16 148/92 99 Room Air* 0 21 12/23/24 14:28 98.4 92 16 150/103 98 Room Air 0 1555/PATIENT DISCHARGED HOME WITH DJD THORACIC BACK. DYSESTHESIA TO THE RIGHT THIGH PRESCRIBED IBUPROFEN GIVEN A LIST OF LOCAL DOCTORS ON STAFF FOR FOLLOW UP NEXT WEEK Medical Decision Making MDM MEDICAL DISCHARGE MAKING BASED ON PHYSICAL EXAMINATION AND HPI. SKIN INTACT WITH NO VESICULAR LESIONS NO SWELLING NO ERYTHEMA NO TENDERNESS. X-RAY OF THORACIC BACK DEMONSTRATES DJD ONLY PATIENT DISCHARGED HOME WITH IBUPROFEN AND GIVEN A LIST OF LOCAL DOCTORS FOLLOW UP WITH THE NEXT SEVERAL DAYS. DX & DISP Disposition: Discharge Departure Impression: Primary Impression: DJD (degenerative joint disease), thoracic Additional Impressions: Chronic back pain, Dysesthesia Condition: Stable Scripts Cyclobenzaprine HCl (Cyclobenzaprine HCl) 10 Mg Tablet 1 TAB PO TID for muscle spasms for 10 Days, #30 TAB 0 Refills Prov: TOM FERRISP 12/23/24 Ibuprofen (Ibuprofen 800 mg Tab) 800 Mg Tab 800 MG PO Q8H PRN for fever or pain, #30 TAB 0 Refills Prov: TOM FERRISP 12/23/24 Additional Instructions: FOLLOW-UP WITH PRIMARY CARE PROVIDER IN 1 TO 2 DAYS. TAKE MEDICATIONS DIRECTED HERE IN THE EMERGENCY ROOM. OKAY TO CONTINUE HOME MEDICATIONS UNLESS OTHERWISE DISCUSSED DURING YOUR VISIT IN THE EMERGENCY ROOM TODAY. RETURN TO YOUR NEAREST EMERGENCY ROOM IF SYMPTOMS WORSEN OR IF THERE IS NO IMPROVEMENT. CALL 911 IF YOU NEED IMMEDIATE ASSISTANCE. TAKE TYLENOL OR MOTRIN [id number] NEEDED AND IF NO CONTRAINDICATIONS ARE PRESENT. INCREASE ORAL HYDRATION. A WOUND CULTURE OR URINE CULTURE WAS ORDERED HERE IN THE EM ERGENCY ROOM DEPARTMENT PLEASE FOLLOW-UP WITH PRIMARY CARE PROVIDER AND ADVISE THEM TO GET REPEAT PORTS FROM OUR FACILITY. IF YOU HAD ANY KRISTIN WRAP/SPLINTS THAT WERE APPLIED HERE, PLEASE DO NOT REMOVE THEM UNTIL YOU SEE YOUR PRIMARY CARE OR SPECIALTY. TAKE IBUPROFEN AND FLEXERIL EVERY 8 HOURS FOR THE NEXT TWO DAYS. DO NOT OPERATE A MOTORIZED VEHICLE INTAKE FLEXERIL. WARM COMPRESSES TO BACK THREE TO 4 TIMES A DAY AND FOLLOW UP WITH ONE OF THE DOCTORS ON THE LIST PROVIDED YOU IN THE NEXT 1-2 DAYS. Referrals: SELF,REFERRAL (PCP) Time of Disposition: 15:56 I have reviewed the case, and I agree with, Diagnosis and Plan TOM FERRIS Dec 23, 2024 15:32 SUZY BETTS DO Dec 23, 2024 17:50
[2024-12-23] MEDS ORDERED: IBUP-2077 PO (15:57)
[2024-12-23] MEDS ORDERED: CYCL-309 PO (15:57)
--- NOTE | 2024-12-23 16:27 | HMCIMG ---
EXAM: CR Thoracic Spine, 3 View. CLINICAL HISTORY: LATERAL UPPER THORACIC PAIN TWO MONTHS. NO TRAUMA COMPARISON: None provided. FINDINGS: BONES: No acute fracture or aggressive appearing osseous lesion. DISCS / DEGENERATIVE CHANGES: Mild spondylosis evident by small anterior osteophytes and syndesmophytes at multiple levels. Mild multilevel degenerative disc disease. SOFT TISSUES: The paraspinal soft tissue lines are unremarkable. The visualized lungs are clear. MISCELLANEOUS: Visualization of the upper thoracic spine is limited on the lateral view by overlying structures. IMPRESSION: 1. No acute osseous injury. /[place]
--- NOTE | 2024-12-23 16:27 | NUR ---
PT BROUGHT IN TO [facility] AT THIS TIME FOR MED PASS AND DC INSTUCTIONS
[2024-12-23 16:33] VITALS: BP 148/92; PULSE 82; RESP 16; TEMP 98.6; O2SAT 99
== END 2024-12-23 16:31 | disposition home or self-care (01) ==
LOC: EDH 14:27
DX: M47.814 Spondylosis without myelopathy or radiculopathy, thoracic region (principal); G89.29 Other chronic pain; R20.8 Other disturbances of skin sensation; I51.9 Heart disease, unspecified; E11.9 Type 2 diabetes mellitus without complications; Z79.84 Long term (current) use of oral hypoglycemic drugs; Z79.4 Long term (current) use of insulin; Z79.01 Long term (current) use of anticoagulants
CPT/HCPCS: 99284; 72070; 96372; J1885